=== PATIENT | male | born 1980 | race African-American/Black ===

== ENCOUNTER 2024-11-07 08:47 | Emergency (ER) | payer MEDICAID ==
[~2024-11-07] VITALS: Ht 182.9 cm; Wt 68.0 kg
[~2024-11-07 08:47] MED LIST: LEVE500T19 PO; SACU1TAB PO
[2024-11-07 08:59] VITALS: BP 104/65; PULSE 91; RESP 16; TEMP 36.8; O2SAT 100
== END 2024-11-07 09:26 | disposition home or self-care (01) ==
LOC: ER 08:47
DX: S01.81XD Laceration without foreign body of other part of head, subsequent encounter (principal); I11.0 Hypertensive heart disease with heart failure; I50.9 Heart failure, unspecified; E78.5 Hyperlipidemia, unspecified; Z79.899 Other long term (current) drug therapy; X58.XXXD Exposure to other specified factors, subsequent encounter
CPT/HCPCS: 99281; Z7610